=== PATIENT | male | born 1960 | race American Indian/Alaskan Native ===

== ENCOUNTER 2020-04-03 03:15 | Emergency (ER) | payer MEDICAID ==
[2020-04-03 03:58] LABS: Basophils % (Auto) 0.6 % (0.0-1.8); Eosinophils # (Auto) 0.1 K/mm3 (0.0-0.4); Eosinophils % (Auto) 1.2 % (0.0-4.3); Hematocrit 51.7 % (35.5-45.6); Hemoglobin 18.1 gm/dl (11.8-15.2); Lymphocytes # (Auto) 1.3 K/mm3 (1.2-5.4); Lymphocytes % (Auto) 20.5 % (13.4-35.0); Mean Corpuscular HGB Conc 35 % (32-34); Mean Corpuscular Volume 98 fl (84-94); Monocytes # (Auto) 0.6 K/mm3 (0.0-0.8); Monocytes % (Auto) 9.2 % (0.0-7.3); Platelet Count 201 K/mm3 (140-440); Red Blood Count 5.28 M/mm3 (3.65-5.03); Red Cell Distribution Width 12.5 % (13.2-15.2)
[2020-04-03 04:18] LABS: BUN/Creatinine Ratio 7; Blood Urea Nitrogen 9 mg/dL (9-20); Calcium 8.3 mg/dL (8.4-10.2); Hemolysis Index 25
[2020-04-03] MEDS ORDERED: ONDANSETRON 4 MG/2 ML INJ IV ONE (04:34)
--- NOTE | 2020-04-03 04:38 | Emergency Department Report ---
ED N/V/D HPI - General Chief complaint: Fever Stated complaint: FEVER,VOMITING X 3DAYS,CHILLS Source: patient, family Mode of arrival: Ambulatory Limitations: No Limitations - History of Present Illness Initial comments: 59-year-old -Central African male presents to the emergency room for vomiting nausea body aches and headache with dizziness x2 days. Patient states that he is not been able to hold down any food or fluids. Patient complains of chills but denies any fever. Patient admits to smoking cigarettes but does not drink alcohol or smoke weed. Patient has a past medical history of hypertension. Patient cannot remember what blood pressure medication he is supposed to be on. Patient reports he had a COVID negative test 2 months ago. He reports that he works at [employer] complaint: nausea, vomiting Onset/Timin -: days(s) Description of Vomiting: food contents, watery, bilious Associated Abdominal Pain: No Severity: moderate Pain Scale: 0 Context: possible food poisoning Associated Symptoms: diaphoresis, fever/chills (No fever), headaches, nausea/vomiting. denies: chest pain, cough, shortness of breath - Related Data Previous Rx's Medication Instructions Recorded Last Taken Type Metoclopramide [Reglan] 10 mg PO TID PRN #12 tab 04/03/20 Unknown Rx Allergies Allergy/AdvReac Type Severity Reaction Status Date / Time No Known Allergies Allergy Verified 04/03/20 04:52 ED Review of Systems ROS: Stated complaint: FEVER,VOMITING X 3DAYS,CHILLS Other details as noted in HPI ED Past Medical Hx - Past Medical History Previous Medical History?: Yes Hx Hypertension: Yes Additional medical history: Angina - Surgical History Past Surgical History?: Yes Additional Surgical History: Hardware in feet - Social History Smoking Status: Current Every Day Smoker Substance Use Type: Alcohol - Medications Home Medications: Home Medications Medication Instructions Recorded Confirmed Last Taken Type Metoclopramide [Reglan] 10 mg PO TID PRN #12 tab 04/03/20 Unknown Rx ED Physical Exam - General Limitations: No Limitations General appearance: alert, in no apparent distress - Head Head exam: Present: atraumatic, normocephalic - Eye Eye exam: Present: normal appearance - ENT ENT exam: Present: mucous membranes dry - Neck Neck exam: Present: normal inspection - Respiratory Respiratory exam: Present: normal lung sounds bilaterally. Absent: respiratory distress - Cardiovascular Cardiovascular Exam: Present: normal rhythm, tachycardia. Absent: systolic murmur, diastolic murmur, rubs, gallop - GI/Abdominal GI/Abdominal exam: Present: soft, normal bowel sounds - Rectal Rectal exam: Present: deferred - Extremities Exam Extremities exam: Present: normal inspection - Back Exam Back exam: Present: normal inspection - Neurological Exam Neurological exam: Present: alert, oriented X3, normal gait - Psychiatric Psychiatric exam: Present: normal affect, normal mood - Skin Skin exam: Present: warm, dry, intact, normal color. Absent: rash ED Course Vital Signs 04/03/20 03:19 Temperature 98.6 F Pulse Rate 114 H Respiratory 18 Rate Blood Pressure 135/101 O2 Sat by Pulse 95 Oximetry - Reevaluation(s) Reevaluation #1: 04/03/20 06:21 Patient reports he feels better after having fluids headache has resolved after having Reglan and Toradol. ED Medical Decision Making - Lab Data Result diagrams: 04/03/20 03:39 04/03/20 03:39 - Medical Decision Making 59-year-old -[place] male presents to the emergency room for vomiting nausea body aches and headache with dizziness x2 days. Patient states that he is not been able to hold down any food or fluids. Patient complains of chills but denies any fever. Patient admits to smoking cigarettes but does not drink alcohol or smoke weed. Patient has a past medical history of hypertension. Patient cannot remember what blood pressure medication he is supposed to be on. Patient reports he had a COVID negative test 2 months ago. He reports that he works at [employer]. CBC shows he is hemoconcentrated. BMP is stable LFTs are pending. IV normal saline 2 L Zofran 4 mg IV. Critical care attestation.: If time is entered above; I have spent that time in minutes in the direct care of this critically ill patient, excluding procedure time. ED Disposition Clinical Impression: Dehydration, Nausea and vomiting Disposition: DC-01 TO HOME OR SELFCARE Is pt being admited?: No Does the pt Need Aspirin: No Condition: Stable Instructions: Dehydration (ED), Acute Nausea and Vomiting (ED) Additional Instructions: Take Reglan as needed for nausea and vomiting. You can take Tylenol or ibuprofen for headaches. Increase your water intake advance your diet as tolerated. Follow-up with your primary care provider I have listed their information below. Prescriptions: Metoclopramide [Reglan] 10 mg PO TID PRN #12 tab PRN Reason: Nausea And Vomiting Referrals: PRIMARY CAREMD [Primary Care Provider] - 3-5 Days BOBY DUMONT MD [Staff Physician] - 3-5 Days Forms: Work/School Release Form(ED)
[2020-04-03] MEDS ORDERED: KETOROLAC 30 MG/1 ML INJ IM ONE (04:47)
[2020-04-03] MEDS ORDERED: METOCLOPRAMIDE 10 MG/2 ML INJ IV ONE (04:48)
[2020-04-03] MEDS ORDERED: KETOROLAC 30 MG/1 ML INJ ONE (04:50)
[2020-04-03] MEDS ORDERED: METOCLOPRAMIDE 10 MG/2 ML INJ ONE (04:50)
[2020-04-03] MEDS: SODIUM CHLORIDE 0.9% 1000 ML 2,000 ML IV ONE ×2 (04:58→06:24)
[2020-04-03 05:25] LABS: Alanine Aminotransferase 10 units/L (7-56); Albumin 3.8 g/dL (3.9-5)
[2020-04-03 05:49] LABS: Bilirubin,Direct < 0.2 mg/dL (0-0.2)
[2020-04-03] MEDS ORDERED: SODIUM CHLORIDE 0.9% 1000 ML 1,000 ML IV ONE (06:22)
[2020-04-03 07:18] VITALS: BP 146/94
== END 2020-04-03 07:21 | disposition home or self-care (01) ==
LOC: ED 03:15
DX: E86.0 Dehydration (principal); I10 Essential (primary) hypertension; F17.200 Nicotine dependence, unspecified, uncomplicated
CPT/HCPCS: 36415; 80048; 80076; 85025; 96361; 96372; 96374; 99283; J1885; J2405; J2765; J7030; 96375

== ENCOUNTER 2020-06-30 10:38 | Emergency (ER) | payer MEDICAID ==
[2020-06-30 10:44] VITALS: BP 125/95
[2020-06-30] MEDS ORDERED: SODIUM CHLORIDE 0.9% 1000 ML 1,000 ML IV ONE (12:15)
[2020-06-30 13:33] LABS: Basophils % (Auto) 0.6 % (0.0-1.8); Eosinophils # (Auto) 0.1 K/mm3 (0.0-0.4); Eosinophils % (Auto) 1.9 % (0.0-4.3); Hemoglobin 16.8 gm/dl (11.8-15.2); Lymphocytes # (Auto) 1.6 K/mm3 (1.2-5.4); Lymphocytes % (Auto) 30.5 % (13.4-35.0); Mean Corpuscular HGB Conc 34 % (32-34); Mean Corpuscular Volume 100 fl (84-94); Monocytes # (Auto) 0.5 K/mm3 (0.0-0.8); Monocytes % (Auto) 8.9 % (0.0-7.3); Platelet Count 186 K/mm3 (140-440); Red Blood Count 4.99 M/mm3 (3.65-5.03); Red Cell Distribution Width 12.4 % (13.2-15.2)
--- NOTE | 2020-06-30 13:49 | Emergency Department Report ---
ED Dizziness HPI - General Chief Complaint: Dizziness Stated Complaint: HBP/FAINTING/DIZZY Time Seen by Provider: 06/30/20 11:52 Source: patient Mode of arrival: Ambulatory Limitations: No Limitations - History of Present Illness Initial Comments: Patient is a 59-year-old F [place] male with a past medical history of hypertension who is been dizzy for the past 2 weeks. State patient has believe that his dizziness was secondary to being out of his lisinopril. States that when he stands gets up too fast he feels dizziness and lightheaded. He denies chest pain shortness of breath fevers chills cough cold or congestion at this time. - Related Data Previous Rx's Medication Instructions Recorded Last Taken Type Metoclopramide [Reglan] 10 mg PO TID PRN #12 tab 04/03/20 Unknown Rx lisinopriL [Zestril TAB] 20 mg PO QDAY #30 tablet 06/30/20 Unknown Rx Allergies Allergy/AdvReac Type Severity Reaction Status Date / Time No Known Allergies Allergy Verified 04/03/20 04:52 ED Review of Systems ROS: Stated complaint: HBP/FAINTING/DIZZY Other details as noted in HPI Comment: All other systems reviewed and negative ED Past Medical Hx - Past Medical History Hx Hypertension: Yes Additional medical history: Angina - Surgical History Additional Surgical History: Hardware in feet - Social History Smoking Status: Current Every Day Smoker Substance Use Type: Alcohol - Medications Home Medications: Home Medications Medication Instructions Recorded Confirmed Last Taken Type Metoclopramide [Reglan] 10 mg PO TID PRN #12 tab 04/03/20 Unknown Rx lisinopriL [Zestril TAB] 20 mg PO QDAY #30 tablet 06/30/20 Unknown Rx ED Physical Exam - General Limitations: No Limitations General appearance: alert, in no apparent distress - Head Head exam: Present: atraumatic, normocephalic - Eye Eye exam: Present: normal appearance, PERRL, EOMI - ENT ENT exam: Present: normal orophraynx, mucous membranes moist - Neck Neck exam: Present: normal inspection - Respiratory Respiratory exam: Present: normal lung sounds bilaterally. Absent: respiratory distress, wheezes, rales, rhonchi - Cardiovascular Cardiovascular Exam: Present: regular rate, normal rhythm. Absent: systolic murmur, diastolic murmur, rubs, gallop - GI/Abdominal GI/Abdominal exam: Present: soft, normal bowel sounds. Absent: distended, tenderness, guarding, rebound - Rectal Rectal exam: Present: deferred - Extremities Exam Extremities exam: Present: normal inspection - Back Exam Back exam: Present: normal inspection - Neurological Exam Neurological exam: Present: alert, oriented X3, CN II-XII intact - Psychiatric Psychiatric exam: Present: normal affect, normal mood - Skin Skin exam: Present: warm, dry, intact, normal color. Absent: rash ED Course Vital Signs 06/30/20 10:41 Temperature 98.3 F Pulse Rate 87 Respiratory 18 Rate Blood Pressure 125/95 O2 Sat by Pulse 100 Oximetry - Reevaluation(s) Reevaluation #1: 06/30/20 13:48 Orthostatic vital signs were performed which were positive for a significant increase in the patient's heart rate. Her blood pressure remained relatively stable. Patient will have laboratory studies drawn and the patient was given a liter of IV fluids and he will be reassessed. ED Medical Decision Making - Lab Data Result diagrams: 06/30/20 12:32 06/30/20 12:32 Lab Results 06/30/20 Range/Units 12:32 WBC 5.3 (4.5-11.0) K/mm3 RBC 4.99 (3.65-5.03) M/mm3 Hgb 16.8 H (11.8-15.2) gm/dl Hct 50.0 H (35.5-45.6) % MCV 100 H (84-94) fl MCH 34 H (28-32) pg MCHC 34 (32-34) % RDW 12.4 L (13.2-15.2) % Plt Count 186 (140-440) K/mm3 Lymph % (Auto) 30.5 (13.4-35.0) % [place] % (Auto) 8.9 H (0.0-7.3) % Eos % (Auto) 1.9 (0.0-4.3) % Baso % (Auto) 0.6 (0.0-1.8) % Lymph # (Auto) 1.6 (1.2-5.4) K/mm3 [place] # (Auto) 0.5 (0.0-0.8) K/mm3 Eos # (Auto) 0.1 (0.0-0.4) K/mm3 Baso # (Auto) 0.0 (0.0-0.1) K/mm3 Seg Neutrophils % 58.1 (40.0-70.0) % Seg Neutrophils # 3.1 (1.8-7.7) K/mm3 - EKG Data -: EKG Interpreted by Me EKG shows normal: sinus rhythm, axis, intervals, QRS complexes, ST-T waves Rate: normal - EKG Data Interpretation: normal EKG - Medical Decision Making Patient was hydrated with normal saline. His blood work was relatively unremarkable except for some mild hemoconcentration. Patient to be discharged home. He was able to get up and felt improvement in his dizziness after fluids. Critical care attestation.: If time is entered above; I have spent that time in minutes in the direct care of this critically ill patient, excluding procedure time. ED Disposition Clinical Impression: Mild dehydration, Orthostatic lightheadedness Disposition: DC-01 TO HOME OR SELFCARE Is pt being admited?: No Does the pt Need Aspirin: No Condition: Stable Instructions: Dehydration (ED) Prescriptions: lisinopriL [Zestril TAB] 20 mg PO QDAY #30 tablet Referrals: EXETER RAJANSCOTTSDALE MD AARON [Referring] - 3-5 Days PRIMARY CARE, [Primary Care Provider] - 3-5 Days Time of Disposition: 15:09
[2020-06-30 14:49] LABS: BUN/Creatinine Ratio 12; Blood Urea Nitrogen 14 mg/dL (9-20); Calcium 8.9 mg/dL (8.4-10.2); Hemolysis Index 10
== END 2020-06-30 15:50 | disposition home or self-care (01) ==
LOC: ED 10:38
DX: E86.0 Dehydration (principal); R42 Dizziness and giddiness; I10 Essential (primary) hypertension; F17.200 Nicotine dependence, unspecified, uncomplicated; Z79.899 Other long term (current) drug therapy
CPT/HCPCS: 36415; 80048; 85025; 93005; 96360; 99283; J7030

== ENCOUNTER 2020-07-04 19:42 | Emergency (ER) | payer MEDICAID | END 2020-07-04 20:05 | disposition left against medical advice (07) | LOC: ED 19:42 | DX: R53.1 Weakness (principal); Z53.21 Procedure and treatment not carried out due to patient leaving prior to being seen by health care provider ==

== ENCOUNTER 2020-07-05 10:18 | Emergency (ER) | payer MEDICAID ==
[2020-07-05 12:48] LABS: Basophils % (Auto) 0.8 % (0.0-1.8); Eosinophils # (Auto) 0.1 K/mm3 (0.0-0.4); Eosinophils % (Auto) 1.2 % (0.0-4.3); Hematocrit 46.2 % (35.5-45.6); Lymphocytes # (Auto) 1.3 K/mm3 (1.2-5.4); Lymphocytes % (Auto) 22.7 % (13.4-35.0); Mean Corpuscular HGB Conc 35 % (32-34); Mean Corpuscular Volume 99 fl (84-94); Monocytes # (Auto) 0.5 K/mm3 (0.0-0.8); Monocytes % (Auto) 9.6 % (0.0-7.3); Platelet Count 181 K/mm3 (140-440); Red Blood Count 4.65 M/mm3 (3.65-5.03); Red Cell Distribution Width 12.8 % (13.2-15.2)
--- NOTE | 2020-07-05 12:48 | XRay Report ---
CHEST 1 VIEW 07/05/2020 12:03 PM INDICATION / CLINICAL INFORMATION: smoker, unexplained weight lose. COMPARISON: None available. FINDINGS: SUPPORT DEVICES: None. HEART / MEDIASTINUM: No significant abnormality. LUNGS / PLEURA: No significant pulmonary or pleural abnormality. No pneumothorax. ADDITIONAL FINDINGS: No significant additional findings. IMPRESSION: 1. No acute abnormality of the chest. Signer Name: George Campbell MD Signed: 07/05/2020 12:43 PM Workstation Name: [id number]
[2020-07-05 12:52] LABS: Bilirubin,Urine NEG (Negative); Blood,Urine NEG (Negative); Color,Urine Colorless (Yellow); Protein,Urine <15 mg/dL mg/dL (Negative); Urobilinogen,Urine < 2.0 mg/dL (<2.0)
[2020-07-05 13:01] VITALS: BP 153/95
[2020-07-05 13:03] LABS: Alanine Aminotransferase 11 units/L (7-56); Albumin 3.8 g/dL (3.9-5); BUN/Creatinine Ratio 10; Blood Urea Nitrogen 11 mg/dL (9-20); Calcium 8.6 mg/dL (8.4-10.2); Hemolysis Index 16
[2020-07-05 13:05] LABS: RBC,Urine < 1.0 /HPF (0.0-6.0); WBC,Urine < 1.0 /HPF (0.0-6.0)
--- NOTE | 2020-07-05 13:43 | Emergency Department Report ---
ED General Adult HPI - General Chief complaint: Weakness Stated complaint: WEAKNESS Time Seen by Provider: 07/05/20 11:39 Source: patient Mode of arrival: Ambulatory Limitations: No Limitations - History of Present Illness Initial comments: Patient presents to the emergency department with a chief complaint of fatigue and decreased appetite for the last couple of weeks. Patient states he was seen in emergency department within the last week and was given IV fluids for dehydration. Patient also complains of unexplained weight loss over the last 3 months. Patient has a history of smoking and has never had a baseline colonoscopy done. Patient denies chest pain, shortness breath, headache, abdominal pain. -: Gradual Severity scale (0 -10): 0 Consistency: constant Improves with: none Worsens with: none Associated Symptoms: denies other symptoms Treatments Prior to Arrival: none - Related Data Previous Rx's Medication Instructions Recorded Last Taken Type Metoclopramide [Reglan] 10 mg PO TID PRN #12 tab 04/03/20 Unknown Rx lisinopriL [Zestril TAB] 20 mg PO QDAY #30 tablet 06/30/20 Unknown Rx Allergies Allergy/AdvReac Type Severity Reaction Status Date / Time No Known Allergies Allergy Verified 04/03/20 04:52 ED Review of Systems ROS: Stated complaint: WEAKNESS Other details as noted in HPI Comment: All other systems reviewed and negative Constitutional: other (fatigue). denies: chills, fever Eyes: denies: eye pain, eye discharge, vision change ENT: denies: ear pain, throat pain Respiratory: denies: cough, shortness of breath, wheezing Cardiovascular: denies: chest pain, palpitations Endocrine: no symptoms reported Gastrointestinal: denies: abdominal pain, nausea, diarrhea Genitourinary: denies: urgency, dysuria Musculoskeletal: denies: back pain, joint swelling, arthralgia Skin: denies: rash, lesions Neurological: denies: headache, weakness, paresthesias Psychiatric: denies: anxiety, depression Hematological/Lymphatic: denies: easy bleeding, easy bruising ED Past Medical Hx - Past Medical History Hx Hypertension: Yes Additional medical history: Angina - Surgical History Additional Surgical History: Hardware in feet - Social History Smoking Status: Current Every Day Smoker - Medications Home Medications: Home Medications Medication Instructions Recorded Confirmed Last Taken Type Metoclopramide [Reglan] 10 mg PO TID PRN #12 tab 04/03/20 Unknown Rx lisinopriL [Zestril TAB] 20 mg PO QDAY #30 tablet 06/30/20 Unknown Rx ED Physical Exam - General Limitations: No Limitations General appearance: alert, in no apparent distress - Head Head exam: Present: atraumatic, normocephalic - Eye Eye exam: Present: normal appearance, PERRL, EOMI - ENT ENT exam: Present: mucous membranes moist - Neck Neck exam: Present: normal inspection - Respiratory Respiratory exam: Present: normal lung sounds bilaterally. Absent: respiratory distress - Cardiovascular Cardiovascular Exam: Present: regular rate, normal rhythm. Absent: systolic murmur, diastolic murmur, rubs, gallop - GI/Abdominal GI/Abdominal exam: Present: soft, normal bowel sounds. Absent: distended, tenderness - Rectal Rectal exam: Present: deferred - Extremities Exam Extremities exam: Present: normal inspection - Back Exam Back exam: Present: normal inspection - Neurological Exam Neurological exam: Present: alert, oriented X3, CN II-XII intact. Absent: motor sensory deficit - Psychiatric Psychiatric exam: Present: normal affect, normal mood - Skin Skin exam: Present: warm, dry, intact, normal color. Absent: rash ED Course Vital Signs 07/05/20 07/05/20 07/05/20 10:23 11:05 11:15 Temperature 97.7 F Pulse Rate 90 68 68 Respiratory 18 21 18 Rate Blood Pressure 130/98 145/103 O2 Sat by Pulse 99 100 Oximetry 07/05/20 07/05/20 07/05/20 11:30 12:00 12:31 Temperature Pulse Rate 75 66 65 Respiratory 19 20 20 Rate Blood Pressure 140/107 153/95 153/95 O2 Sat by Pulse 99 100 100 Oximetry ED Medical Decision Making - Lab Data Result diagrams: 07/05/20 12:16 07/05/20 12:16 Lab Results 07/05/20 07/05/20 07/05/20 Range/Units 12:16 12:16 Unknown WBC 5.6 (4.5-11.0) K/mm3 RBC 4.65 (3.65-5.03) M/mm3 Hgb 16.0 H (11.8-15.2) gm/dl Hct 46.2 H (35.5-45.6) % MCV 99 H (84-94) fl MCH 34 H (28-32) pg MCHC 35 H (32-34) % RDW 12.8 L (13.2-15.2) % Plt Count 181 (140-440) K/mm3 Lymph % (Auto) 22.7 (13.4-35.0) % [place] % (Auto) 9.6 H (0.0-7.3) % Eos % (Auto) 1.2 (0.0-4.3) % Baso % (Auto) 0.8 (0.0-1.8) % Lymph # (Auto) 1.3 (1.2-5.4) K/mm3 [place] # (Auto) 0.5 (0.0-0.8) K/mm3 Eos # (Auto) 0.1 (0.0-0.4) K/mm3 Baso # (Auto) 0.0 (0.0-0.1) K/mm3 Seg Neutrophils % 65.7 (40.0-70.0) % Seg Neutrophils # 3.7 (1.8-7.7) K/mm3 Sodium 138 (137-145) mmol/L Potassium 4.3 (3.6-5.0) mmol/L Chloride 101.2 (98-107) mmol/L Carbon Dioxide 27 (22-30) mmol/L Anion Gap 14 mmol/L BUN 11 (9-20) mg/dL Creatinine 1.1 (0.8-1.3) mg/dL Estimated GFR > 60 ml/min BUN/Creatinine Ratio 10 % Glucose 121 H (75-100) mg/dL Calcium 8.6 (8.4-10.2) mg/dL Total Bilirubin 0.40 (0.1-1.2) mg/dL AST 20 (5-40) units/L ALT 11 (7-56) units/L Alkaline Phosphatase 77 (35-129) units/L Total Protein 5.6 L (6.3-8.2) g/dL Albumin 3.8 L (3.9-5) g/dL Albumin/Globulin Ratio 2.1 % Urine Color Colorless (Yellow) Urine Turbidity Clear (Clear) Urine pH 7.0 (5.0-7.0) Ur Specific [place] 1.002 L (1.003-1.030) Urine Protein <15 mg/dl (Negative) mg/dL Urine Glucose (UA) Neg (Negative) mg/dL Urine Ketones Neg (Negative) mg/dL Urine Blood Neg (Negative) Urine Nitrite Neg (Negative) Urine Bilirubin Neg (Negative) Urine Urobilinogen < 2.0 (<2.0) mg/dL Ur Leukocyte Esterase Neg (Negative) Urine WBC (Auto) < 1.0 (0.0-6.0) /HPF Urine RBC (Auto) < 1.0 (0.0-6.0) /HPF - Radiology Data Radiology results: report reviewed - Medical Decision Making Discussed results with patient Critical care attestation.: If time is entered above; I have spent that time in minutes in the direct care of this critically ill patient, excluding procedure time. ED Disposition Clinical Impression: Fatigue Disposition: DC-01 TO HOME OR SELFCARE Is pt being admited?: No Does the pt Need Aspirin: No Condition: Stable Instructions: Fatigue (ED) Additional Instructions: return if worse Referrals: KULDIP SANON MD [Primary Care Provider] - 3-5 Days BOBY DUMONT MD [Staff Physician] - 3-5 Days GARTH LATIF MD [Staff Physician] - 3-5 Days [facility] [Provider Group] - 3-5 Days Time of Disposition: 13:41
== END 2020-07-05 14:49 | disposition home or self-care (01) ==
LOC: ED 10:18
DX: R53.83 Other fatigue (principal); R53.1 Weakness; I10 Essential (primary) hypertension; F17.200 Nicotine dependence, unspecified, uncomplicated; Z79.899 Other long term (current) drug therapy
CPT/HCPCS: 36415; 71045; 80053; 81001; 85025; 93005

== ENCOUNTER 2020-11-22 15:19 | Emergency (ER) | payer MEDICAID ==
[2020-11-22 16:12] VITALS: BP 130/88
--- NOTE | 2020-11-22 17:56 | Emergency Department Report ---
ED ENT HPI - General Chief complaint: Dental/Oral Stated complaint: FACIAL SWELLING Time Seen by Provider: 11/22/20 16:26 Source: patient Mode of arrival: Ambulatory Limitations: No Limitations - History of Present Illness Initial comments: This is a 60-year-old male nontoxic, well nourished in appearance, no acute signs of distress presents to the ED with c/o of left upper toothache several days. Patient stated has several tooth extracted and was placed on amoxicillin which he is currently taking but stated pain is worsening and has some gingival swelling. Patient describes toothache as aching level of 8 out of 10. Patient denies any facial swelling. Patient denies any numbness, tingling, fever, chills, headache, stiff neck, abdominal pain, chest pain, shortness of breath. Patient denies any drug allergies or significant past medical history. MD complaint: tooth pain -: days(s) Location: tooth # 1 - Pain here Severity: mild Severity scale (0 -10): 8 Quality: aching Consistency: constant Improves with: none Worsens with: none Context- Dental: history of dental caries, poor dental care Associated Symptoms: gum swelling, toothache. denies: fever, cough, pain with swallowing, sore throat, tinnitus, hearing loss, discharge from ear, rhinorrhea - Related Data Previous Rx's Medication Instructions Recorded Last Taken Type Metoclopramide [Reglan] 10 mg PO TID PRN #12 tab 04/03/20 Unknown Rx lisinopriL [Zestril TAB] 20 mg PO QDAY #30 tablet 06/30/20 Unknown Rx Chlorhexidine Mouthwash [Peridex] 15 ml MM BID #1 bottle 11/22/20 Unknown Rx Clindamycin [Clindamycin CAP] 300 mg PO Q8H #21 cap 11/22/20 Unknown Rx Allergies Allergy/AdvReac Type Severity Reaction Status Date / Time No Known Allergies Allergy Verified 04/03/20 04:52 ED Dental HPI - General Chief complaint: Dental/Oral Stated complaint: FACIAL SWELLING Time Seen by Provider: 11/22/20 16:26 Source: patient Mode of arrival: Ambulatory Limitations: No Limitations - Related Data Previous Rx's Medication Instructions Recorded Last Taken Type Metoclopramide [Reglan] 10 mg PO TID PRN #12 tab 04/03/20 Unknown Rx lisinopriL [Zestril TAB] 20 mg PO QDAY #30 tablet 06/30/20 Unknown Rx Chlorhexidine Mouthwash [Peridex] 15 ml MM BID #1 bottle 11/22/20 Unknown Rx Clindamycin [Clindamycin CAP] 300 mg PO Q8H #21 cap 11/22/20 Unknown Rx Allergies Allergy/AdvReac Type Severity Reaction Status Date / Time No Known Allergies Allergy Verified 04/03/20 04:52 ED Review of Systems ROS: Stated complaint: FACIAL SWELLING Other details as noted in HPI Comment: All other systems reviewed and negative Constitutional: denies: chills, fever Eyes: denies: eye pain, eye discharge, vision change ENT: dental pain. denies: ear pain, throat pain Respiratory: denies: cough, shortness of breath, wheezing Cardiovascular: denies: chest pain, palpitations Endocrine: no symptoms reported Gastrointestinal: denies: abdominal pain, nausea, diarrhea Genitourinary: denies: urgency, dysuria Musculoskeletal: denies: back pain, joint swelling, arthralgia Skin: denies: rash, lesions Neurological: denies: headache, weakness, paresthesias Psychiatric: denies: anxiety, depression Hematological/Lymphatic: denies: easy bleeding, easy bruising ED Past Medical Hx - Past Medical History Previous Medical History?: Yes Hx Hypertension: Yes Additional medical history: Angina - Surgical History Past Surgical History?: Yes Additional Surgical History: Hardware in feet - Social History Smoking Status: Current Every Day Smoker Substance Use Type: None - Medications Home Medications: Home Medications Medication Instructions Recorded Confirmed Last Taken Type Metoclopramide [Reglan] 10 mg PO TID PRN #12 tab 04/03/20 Unknown Rx lisinopriL [Zestril TAB] 20 mg PO QDAY #30 tablet 06/30/20 Unknown Rx Chlorhexidine Mouthwash [Peridex] 15 ml MM BID #1 bottle 11/22/20 Unknown Rx Clindamycin [Clindamycin CAP] 300 mg PO Q8H #21 cap 11/22/20 Unknown Rx ED Physical Exam - General Limitations: No Limitations General appearance: alert, in no apparent distress - Head Head exam: Present: atraumatic, normocephalic - Eye Eye exam: Present: normal appearance - Expanded ENT Exam Expanded Ear exam: Present: normal external inspection Mouth exam: Present: normal external inspection, tongue normal. Absent: drooling, trismus, muffled voice Teeth exam: Present: dental tenderness #, gingival enlargement, other (No facial swelling or abscess). Absent: dental caries, fractured tooth # Throat exam: Positive: normal inspection, other (Uvula midline.). Negative: tonsillar erythema, tonsillomegaly, tonsillar exudate, R peritonsillar mass, L peritonsillar mass - Neck Neck exam: Present: normal inspection, full ROM. Absent: tenderness, meningismus, lymphadenopathy - Respiratory Respiratory exam: Absent: respiratory distress - Cardiovascular Cardiovascular Exam: Present: regular rate - Extremities Exam Extremities exam: Present: full ROM - Back Exam Back exam: Present: full ROM - Neurological Exam Neurological exam: Present: alert, oriented X3, normal gait - Psychiatric Psychiatric exam: Present: normal affect, normal mood - Skin Skin exam: Present: warm, dry, intact, normal color. Absent: rash ED Course Vital Signs 11/22/20 16:10 Temperature 98.7 F Pulse Rate 70 Respiratory 18 Rate Blood Pressure 130/88 O2 Sat by Pulse 98 Oximetry - Reevaluation(s) Reevaluation #1: 11/22/20 17:57 Patient is speaking in full sentences with no signs of distress noted. ED Medical Decision Making - Medical Decision Making I will discharge patient with clindamycin. I instructed patient not to take amoxicillin due to the antibiotic change. Exam otherwise does not show any abscess but does show gingival enlargement. Patient also will be discharged with Peridex. Patient was instructed to follow-up with a dentist doctor in 3-5 days or if symptoms worsen and continue return to emergency room as soon as possible. At time of discharge, the patient does not seem toxic or ill in appearance. No acute signs of distress noted. Patient agrees to discharge treatment plan of care. No further questions noted by the patient. Critical care attestation.: If time is entered above; I have spent that time in minutes in the direct care of this critically ill patient, excluding procedure time. ED Disposition Clinical Impression: Gingivitis, Toothache Disposition: TO HOME OR SELFCARE Is pt being admited?: No Does the pt Need Aspirin: No Condition: Stable Additional Instructions: Follow-up with a dentist doctor in 3-5 days or if symptoms worsen and continue return to emergency room as soon as possible. Prescriptions: Clindamycin [Clindamycin CAP] 300 mg PO Q8H #21 cap Chlorhexidine Mouthwash [Peridex] 15 ml MM BID #1 bottle Referrals: PRIMARY CARE, [Referring] - 3-5 Days [facility] [Outside] - 3-5 Days [facility] [Outside] - 3-5 Days Time of Disposition: 17:58
== END 2020-11-22 17:58 | disposition home or self-care (01) ==
LOC: ED 15:19
DX: K05.10 Chronic gingivitis, plaque induced (principal); K08.89 Other specified disorders of teeth and supporting structures; I10 Essential (primary) hypertension; F17.200 Nicotine dependence, unspecified, uncomplicated; Z79.899 Other long term (current) drug therapy
CPT/HCPCS: 99282

== ENCOUNTER 2020-12-13 01:00 | Emergency (ER) | payer MEDICAID ==
[2020-12-13 01:11] VITALS: BP 137/89
--- NOTE | 2020-12-13 01:21 | Emergency Department Report ---
ED Back Pain/Injury HPI - General Chief Complaint: Back Pain/Injury Stated Complaint: BACK PAIN, HEADACHE Source: patient Limitations: No Limitations - History of Present Illness MD Complaint: back pain (lower back pain from heavy lifting at work), other (headache) -: Sudden, week(s) (1) Similar Symptoms Previously: No Place: work Radiation: none Severity: severe Severity scale (0 -10): 8 Quality: sharp, aching Consistency: constant Improves With: none Worsens With: movement, walking Context: while lifting, turning/twisting Associated Symptoms: denies other symptoms, headaches. denies: confusion, numbness, difficulty walking, difficulty urinating, diaphoresis, incontinence, constipation, abdominal pain, loss of appetite, nausea/vomiting, rash, seizure, shortness of breath, other Treatments Prior to Arrival: acetaminophen - Related Data Previous Rx's Medication Instructions Recorded Last Taken Type Metoclopramide [Reglan] 10 mg PO TID PRN #12 tab 04/03/20 Unknown Rx lisinopriL [Zestril TAB] 20 mg PO QDAY #30 tablet 06/30/20 Unknown Rx Chlorhexidine Mouthwash [Peridex] 15 ml MM BID #1 bottle 11/22/20 Unknown Rx Clindamycin [Clindamycin CAP] 300 mg PO Q8H #21 cap 11/22/20 Unknown Rx Ibuprofen [Motrin] 600 mg PO Q8H PRN #30 tablet 12/13/20 Unknown Rx methOCARBAMOL [Robaxin TAB] 750 mg PO BID PRN #30 tab 12/13/20 Unknown Rx predniSONE [Deltasone] 40 mg PO QDAY #10 tab 12/13/20 Unknown Rx Allergies Allergy/AdvReac Type Severity Reaction Status Date / Time No Known Allergies Allergy Verified 04/03/20 04:52 ED Review of Systems ROS: Stated complaint: BACK PAIN, HEADACHE Other details as noted in HPI ED Past Medical Hx - Past Medical History Previous Medical History?: Yes Hx Hypertension: Yes Additional medical history: Angina - Surgical History Past Surgical History?: Yes Additional Surgical History: Hardware in feet - Social History Smoking Status: Current Every Day Smoker Substance Use Type: None - Medications Home Medications: Home Medications Medication Instructions Recorded Confirmed Last Taken Type Metoclopramide [Reglan] 10 mg PO TID PRN #12 tab 04/03/20 Unknown Rx lisinopriL [Zestril TAB] 20 mg PO QDAY #30 tablet 06/30/20 Unknown Rx Chlorhexidine Mouthwash [Peridex] 15 ml MM BID #1 bottle 11/22/20 Unknown Rx Clindamycin [Clindamycin CAP] 300 mg PO Q8H #21 cap 11/22/20 Unknown Rx Ibuprofen [Motrin] 600 mg PO Q8H PRN #30 tablet 12/13/20 Unknown Rx methOCARBAMOL [Robaxin TAB] 750 mg PO BID PRN #30 tab 12/13/20 Unknown Rx predniSONE [Deltasone] 40 mg PO QDAY #10 tab 12/13/20 Unknown Rx ED Physical Exam - General Limitations: No Limitations ED Course Vital Signs 12/13/20 12/13/20 01:10 01:11 Temperature 97.7 F Pulse Rate 65 Respiratory 16 Rate Blood Pressure 137/89 O2 Sat by Pulse 96 Oximetry Critical care attestation.: If time is entered above; I have spent that time in minutes in the direct care of this critically ill patient, excluding procedure time. ED Disposition Clinical Impression: Spasm of muscle of lower back Acute low back pain without sciatica Qualifiers: Back pain laterality: unspecified Qualified Code(s): M54.5 - Low back pain Disposition: - TO HOME OR SELFCARE Is pt being admited?: No Does the pt Need Aspirin: No Condition: Stable Instructions: Muscle Cramps and Spasms, [id number], Acute Back Pain, Adult Additional Instructions: Your symptoms are likely due to muscle spasm and muscle strain of your low back from heavy lifting. Therefore take medication as needed for pain and muscle relaxants, drink plenty of fluids and follow-up with your primary care physician in 5 to 7 days for reevaluation. Return to the ED immediately if symptoms get worse. Prescriptions: predniSONE [Deltasone] 40 mg PO QDAY #10 tab Ibuprofen [Motrin] 600 mg PO Q8H PRN #30 tablet PRN Reason: Pain methOCARBAMOL [Robaxin TAB] 750 mg PO BID PRN #30 tab PRN Reason: Muscle Spasm Referrals: [facility] [Provider Group] - 3-5 Days Forms: Work/School Release Form(ED) Time of Disposition: 01:19 Print Language: CZECH
== END 2020-12-13 02:11 | disposition home or self-care (01) ==
LOC: ED 01:00
DX: M54.5 Low back pain (principal); M62.830 Muscle spasm of back; I10 Essential (primary) hypertension; F17.200 Nicotine dependence, unspecified, uncomplicated; Z98.890 Other specified postprocedural states; Z79.1 Long term (current) use of non-steroidal anti-inflammatories (NSAID); Z79.2 Long term (current) use of antibiotics; Z79.899 Other long term (current) drug therapy
CPT/HCPCS: 99281

== ENCOUNTER 2020-12-27 23:20 | Emergency (ER) | payer MEDICAID ==
[2020-12-28 00:24] VITALS: BP 148/100
[2020-12-28] MEDS ORDERED: predniSONE 20 MG TAB PO ONE (02:39)
[2020-12-28] MEDS ORDERED: ACETAMINOPHEN 500 MG TAB PO ONE (02:39)
[2020-12-28] MEDS ORDERED: diphenhydrAMINE 25 MG CAP PO ONE (02:39)
--- NOTE | 2020-12-28 02:44 | Emergency Department Report ---
ED General Adult HPI - General Chief complaint: Upper Respiratory Infection Stated complaint: SINUS,HEADACHE,COLD,COUGH Time Seen by Provider: 12/28/20 02:38 Source: patient Mode of arrival: Ambulatory Limitations: No Limitations - History of Present Illness Initial comments: Patient is a 60-year-old male with a history of hypertension and recurrent sinu sitis. Patient presents tonight for sinus pain and pressure frontal and maxillary patient rates symptoms at 4/10 with her congestion and pressure. States nocturnal fever no fever noted in triage today. Patient does state rhinorrhea yellow-green in color, and postnasal drip. There is no wheezing, stridor, or shortness of breath. There is been no chest pain or nausea vomiting. There is been no dizziness, lightheadedness, patient does endorse usual sinus headache with pressure. Symptoms relieved temporarily with Tylenol however symptoms return with activity and movement. Patient does have a primary care doctor. There are no other exacerbating or relieving factors. - Related Data Previous Rx's Medication Instructions Recorded Last Taken Type Metoclopramide [Reglan] 10 mg PO TID PRN #12 tab 04/03/20 Unknown Rx lisinopriL [Zestril TAB] 20 mg PO QDAY #30 tablet 06/30/20 Unknown Rx Chlorhexidine Mouthwash [Peridex] 15 ml MM BID #1 bottle 11/22/20 Unknown Rx Clindamycin [Clindamycin CAP] 300 mg PO Q8H #21 cap 11/22/20 Unknown Rx Ibuprofen [Motrin] 600 mg PO Q8H PRN #30 tablet 12/13/20 Unknown Rx methOCARBAMOL [Robaxin TAB] 750 mg PO BID PRN #30 tab 12/13/20 Unknown Rx predniSONE [Deltasone] 40 mg PO QDAY #10 tab 12/13/20 Unknown Rx Acetaminophen [Acetaminophen TAB] 1,000 mg PO Q6HR PRN #30 tablet 12/28/20 Unknown Rx Amoxicillin/Potassium Clav 1 each PO BID 7 Days #14 tablet 12/28/20 Unknown Rx [Augmentin 875-125 Tablet] diphenhydrAMINE [Benadryl CAP] 25 mg PO Q6HR PRN #15 capsule 12/28/20 Unknown Rx predniSONE [Deltasone] 40 mg PO DAILY 5 Days #10 tablet 12/28/20 Unknown Rx Allergies Allergy/AdvReac Type Severity Reaction Status Date / Time No Known Allergies Allergy Verified 04/03/20 04:52 ED Review of Systems ROS: Stated complaint: SINUS,HEADACHE,COLD,COUGH Other details as noted in HPI Constitutional: chills, malaise Eyes: denies: eye pain, eye discharge, vision change ENT: ear pain, congestion, other (sinus pain and pressure ) Respiratory: no symptoms reported, cough (with post nasal drip ). denies: shortness of breath, wheezing Cardiovascular: denies: chest pain, palpitations Endocrine: no symptoms reported Gastrointestinal: denies: abdominal pain, nausea, vomiting, diarrhea Genitourinary: denies: urgency, dysuria Musculoskeletal: denies: back pain, joint swelling, arthralgia Skin: denies: rash, lesions Neurological: headache (frontal sinus pressure ). denies: weakness, numbness, paresthesias, confusion, vertigo Psychiatric: denies: anxiety, depression Hematological/Lymphatic: denies: easy bleeding, easy bruising ED Past Medical Hx - Past Medical History Previous Medical History?: Yes Hx Hypertension: Yes Additional medical history: Angina. 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 - Surgical History Past Surgical History?: Yes Hx Coronary Stent: Yes (stent) Additional Surgical History: Hardware in feet - Social History Smoking Status: Current Every Day Smoker Substance Use Type: None - Medications Home Medications: Home Medications Medication Instructions Recorded Confirmed Last Taken Type Metoclopramide [Reglan] 10 mg PO TID PRN #12 tab 04/03/20 Unknown Rx lisinopriL [Zestril TAB] 20 mg PO QDAY #30 tablet 06/30/20 Unknown Rx Chlorhexidine Mouthwash [Peridex] 15 ml MM BID #1 bottle 11/22/20 Unknown Rx Clindamycin [Clindamycin CAP] 300 mg PO Q8H #21 cap 11/22/20 Unknown Rx Ibuprofen [Motrin] 600 mg PO Q8H PRN #30 tablet 12/13/20 Unknown Rx methOCARBAMOL [Robaxin TAB] 750 mg PO BID PRN #30 tab 12/13/20 Unknown Rx predniSONE [Deltasone] 40 mg PO QDAY #10 tab 12/13/20 Unknown Rx Acetaminophen [Acetaminophen TAB] 1,000 mg PO Q6HR PRN #30 tablet 12/28/20 Unknown Rx Amoxicillin/Potassium Clav 1 each PO BID 7 Days #14 tablet 12/28/20 Unknown Rx [Augmentin 875-125 Tablet] diphenhydrAMINE [Benadryl CAP] 25 mg PO Q6HR PRN #15 capsule 12/28/20 Unknown Rx predniSONE [Deltasone] 40 mg PO DAILY 5 Days #10 tablet 12/28/20 Unknown Rx ED Physical Exam - General Limitations: No Limitations General appearance: alert, in no apparent distress - Head Head exam: Present: normocephalic - Eye Eye exam: Present: PERRL, EOMI Pupils: Present: normal accommodation - ENT ENT exam: Present: mucous membranes moist, TM's normal bilaterally, normal external ear exam, other (bilat frontal and maxillary sinus pain and pressure to palpation, turbinates boggy with yellow rhinorrhea and post nasal drip ) - Expanded ENT Exam Expanded Throat exam: Positive: tonsillar erythema, other (uvula midline no exudate no stridor, airway is patent ). Negative: tonsillomegaly, tonsillar exudate, R peritonsillar mass, L peritonsillar mass - Neck Neck exam: Present: normal inspection, full ROM. Absent: tenderness, meningismus, lymphadenopathy, thyromegaly - Respiratory Respiratory exam: Present: normal lung sounds bilaterally. Absent: respiratory distress, wheezes, stridor, chest wall tenderness - Cardiovascular Cardiovascular Exam: Present: regular rate, normal rhythm, normal heart sounds. Absent: systolic murmur, diastolic murmur, rubs, gallop - GI/Abdominal GI/Abdominal exam: Present: soft, normal bowel sounds. Absent: distended, tenderness - Rectal Rectal exam: Present: deferred - Extremities Exam Extremities exam: Present: normal inspection. Absent: full ROM, tenderness - Back Exam Back exam: Present: normal inspection, full ROM. Absent: tenderness - Neurological Exam Neurological exam: Present: alert, oriented X3, CN II-XII intact, normal gait - Expanded Neurological Exam Expanded Patient oriented to: Present: person, place, time Best Eye Response ([place]): (4) open spontaneously Best Motor Response ([place]): (6) obeys commands Best Verbal Response ([place]): (5) oriented [place] Total: 15 - Psychiatric Psychiatric exam: Present: normal affect, normal mood - Skin Skin exam: Present: warm, dry, intact, normal color. Absent: rash ED Course Vital Signs 04/14/21 00:19 Temperature 98.5 F Pulse Rate 73 Respiratory 16 Rate Blood Pressure 148/100 O2 Sat by Pulse 100 Oximetry ED Medical Decision Making - Medical Decision Making This is straightforward sinusitis with sinus headache. We will treat for same. Patient DC'd home with prescriptions. Patient will follow up primary care doctor in 2 to 3 days. Patient will return to ED should symptoms worsen. Patient DC'd home in stable condition at this time. Critical care attestation.: If time is entered above; I have spent that time in minutes in the direct care of this critically ill patient, excluding procedure time. ED Disposition Clinical Impression: Sinus headache Sinusitis Qualifiers: Sinusitis location: maxillary Chronicity: acute Recurrence: recurrent Qualified Code(s): J01.01 - Acute recurrent maxillary sinusitis Disposition: DC-01 TO HOME OR SELFCARE Is pt being admited?: No Does the pt Need Aspirin: No Condition: Stable Instructions: Sinusitis, Adult, [id number], Sinus Headache, [id number] Additional Instructions: follow up with your primary care doctor in 2-3 days, take medications as prescribed, return to ed if symptoms worsen. Prescriptions: Acetaminophen [Acetaminophen TAB] 1,000 mg PO Q6HR PRN #30 tablet PRN Reason: headache, pain Amoxicillin/Potassium Clav [Augmentin 875-125 Tablet] 1 each PO BID 7 Days #14 tablet diphenhydrAMINE [Benadryl CAP] 25 mg PO Q6HR PRN #15 capsule PRN Reason: congestion headache predniSONE [Deltasone] 40 mg PO DAILY 5 Days #10 tablet Referrals: SHANTA MURRAY MD [Primary Care Provider] - 3-5 Days Forms: Work/School Release Form(ED) Time of Disposition: 02:49
== END 2020-12-28 03:03 | disposition home or self-care (01) ==
LOC: ED 23:20
DX: J32.9 Chronic sinusitis, unspecified (principal); I10 Essential (primary) hypertension; F17.200 Nicotine dependence, unspecified, uncomplicated; Z98.890 Other specified postprocedural states; Z79.899 Other long term (current) drug therapy
CPT/HCPCS: 99282; J7512

== ENCOUNTER 2021-05-05 10:02 | Emergency (ER) | payer MEDICAID ==
[2021-05-05 10:33] VITALS: BP 136/90
--- NOTE | 2021-05-05 11:33 | XRay Report ---
CHEST 2 VIEWS INDICATION / CLINICAL INFORMATION: shortness of breath. COMPARISON: One view of the chest dated 07/05/2020 FINDINGS: SUPPORT DEVICES: None. HEART / MEDIASTINUM: No significant abnormality. LUNGS / PLEURA: No significant pulmonary abnormality. No significant pleural effusion. No pneumothora x. ADDITIONAL FINDINGS: No significant additional findings. IMPRESSION: 1. No acute abnormality of the chest. Signer Name: George Campbell MD Signed: 05/05/2021 11:29 AM Workstation Name: [id number]
[2021-05-05 12:24] LABS: Basophils % (Auto) 0.7 % (0.0-1.8); Eosinophils # (Auto) 0.1 K/mm3 (0.0-0.4); Eosinophils % (Auto) 1.8 % (0.0-4.3); Hematocrit 45.7 % (35.5-45.6); Lymphocytes # (Auto) 1.8 K/mm3 (1.2-5.4); Lymphocytes % (Auto) 30.8 % (13.4-35.0); Mean Corpuscular HGB Conc 35 % (32-34); Mean Corpuscular Volume 99 fl (84-94); Monocytes # (Auto) 0.5 K/mm3 (0.0-0.8); Monocytes % (Auto) 8.3 % (0.0-7.3); Platelet Count 167 K/mm3 (140-440); Red Blood Count 4.62 M/mm3 (3.65-5.03); Red Cell Distribution Width 12.6 % (13.2-15.2)
[2021-05-05 13:09] LABS: Alanine Aminotransferase 9 units/L (7-56); Albumin 4.2 g/dL (3.9-5); BUN/Creatinine Ratio 10; Blood Urea Nitrogen 12 mg/dL (9-20); Calcium 9.1 mg/dL (8.4-10.2); Hemolysis Index 7
--- NOTE | 2021-05-05 13:59 | Emergency Department Report ---
ED General Adult HPI - General Chief complaint: Dyspnea/Respdistress Stated complaint: BREATHING, FOOT PAIN,COLD Time Seen by Provider: 05/05/21 12:29 Source: patient Mode of arrival: Ambulatory Limitations: No Limitations - History of Present Illness Initial comments: This 60-year-old male with past medical history of hypertension and coronary artery disease who presents the emergency department chief complaint of cough, wheezing, generalized myalgias, nasal congestion and fever. He reports his boss tested positive for COVID-19 and told him this morning that he need to be checked out. He denies any hemoptysis, lower extremity edema, chest pain, weakness or any other associated symptoms. He does report he has had a productive cough. His symptoms have been ongoing for about 10 days. He denies any recent antibiotics or immobilization. - Related Data Previous Rx's Medication Instructions Recorded Last Taken Type Metoclopramide [Reglan] 10 mg PO TID PRN #12 tab 04/03/20 Unknown Rx lisinopriL [Zestril TAB] 20 mg PO QDAY #30 tablet 06/30/20 Unknown Rx Chlorhexidine Mouthwash [Peridex] 15 ml MM BID #1 bottle 11/22/20 Unknown Rx Clindamycin [Clindamycin CAP] 300 mg PO Q8H #21 cap 11/22/20 Unknown Rx Ibuprofen [Motrin] 600 mg PO Q8H PRN #30 tablet 12/13/20 Unknown Rx methOCARBAMOL [Robaxin TAB] 750 mg PO BID PRN #30 tab 12/13/20 Unknown Rx predniSONE [Deltasone] 40 mg PO QDAY #10 tab 12/13/20 Unknown Rx Acetaminophen [Acetaminophen TAB] 1,000 mg PO Q6HR PRN #30 tablet 12/28/20 Unknown Rx Amoxicillin/Potassium Clav 1 each PO BID 7 Days #14 tablet 12/28/20 Unknown Rx [Augmentin 875-125 Tablet] diphenhydrAMINE [Benadryl CAP] 25 mg PO Q6HR PRN #15 capsule 12/28/20 Unknown Rx predniSONE [Deltasone] 40 mg PO DAILY 5 Days #10 tablet 12/28/20 Unknown Rx Albuterol Sulfate [Proventil Hfa] 6.7 gm IH Q4HR #1 hfa.aer.ad 05/05/21 Unknown Rx DOXYCYCLINE Hyclate [Vibramycin 100 mg PO Q12HR #20 capsule 05/05/21 Unknown Rx CAP] methylPREDNISolone [Medrol 4MG 4 mg PO ONCE #1 tab.ds.pk 05/05/21 Unknown Rx DOSEPAK (21 tabs)] Allergies Allergy/AdvReac Type Severity Reaction Status Date / Time No Known Allergies Allergy Verified 04/03/20 04:52 ED Review of Systems ROS: Stated complaint: BREATHING, FOOT PAIN,COLD Other details as noted in HPI Comment: All other systems reviewed and negative Constitutional: fever, malaise. denies: chills Eyes: denies: eye pain, eye discharge, vision change ENT: as per HPI, congestion. denies: ear pain, throat pain Respiratory: cough, wheezing. denies: shortness of breath Cardiovascular: denies: chest pain, palpitations Endocrine: no symptoms reported Gastrointestinal: denies: abdominal pain, nausea, diarrhea Genitourinary: denies: urgency, dysuria Musculoskeletal: as per HPI, myalgia. denies: back pain, joint swelling, arthralgia Skin: denies: rash, lesions Neurological: denies: headache, weakness, paresthesias Psychiatric: denies: anxiety, depression Hematological/Lymphatic: denies: easy bleeding, easy bruising ED Past Medical Hx - Past Medical History Previous Medical History?: Yes Hx Hypertension: Yes Additional medical history: Angina. 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 - Surgical History Past Surgical History?: Yes Hx Coronary Stent: Yes (stent) Additional Surgical History: Hardware in feet - Social History Smoking Status: Current Every Day Smoker Substance Use Type: None - Medications Home Medications: Home Medications Medication Instructions Recorded Confirmed Last Taken Type Metoclopramide [Reglan] 10 mg PO TID PRN #12 tab 04/03/20 Unknown Rx lisinopriL [Zestril TAB] 20 mg PO QDAY #30 tablet 06/30/20 Unknown Rx Chlorhexidine Mouthwash [Peridex] 15 ml MM BID #1 bottle 11/22/20 Unknown Rx Clindamycin [Clindamycin CAP] 300 mg PO Q8H #21 cap 11/22/20 Unknown Rx Ibuprofen [Motrin] 600 mg PO Q8H PRN #30 tablet 12/13/20 Unknown Rx methOCARBAMOL [Robaxin TAB] 750 mg PO BID PRN #30 tab 12/13/20 Unknown Rx predniSONE [Deltasone] 40 mg PO QDAY #10 tab 12/13/20 Unknown Rx Acetaminophen [Acetaminophen TAB] 1,000 mg PO Q6HR PRN #30 tablet 12/28/20 Unknown Rx Amoxicillin/Potassium Clav 1 each PO BID 7 Days #14 tablet 12/28/20 Unknown Rx [Augmentin 875-125 Tablet] diphenhydrAMINE [Benadryl CAP] 25 mg PO Q6HR PRN #15 capsule 12/28/20 Unknown Rx predniSONE [Deltasone] 40 mg PO DAILY 5 Days #10 tablet 12/28/20 Unknown Rx Albuterol Sulfate [Proventil Hfa] 6.7 gm IH Q4HR #1 hfa.aer.ad 05/05/21 Unknown Rx DOXYCYCLINE Hyclate [Vibramycin 100 mg PO Q12HR #20 capsule 05/05/21 Unknown Rx CAP] methylPREDNISolone [Medrol 4MG 4 mg PO ONCE #1 tab.ds.pk 05/05/21 Unknown Rx DOSEPAK (21 tabs)] ED Physical Exam - General Limitations: No Limitations General appearance: alert, in no apparent distress - Head Head exam: Present: atraumatic, normocephalic - Eye Eye exam: Present: normal appearance, PERRL, EOMI Pupils: Present: normal accommodation - ENT ENT exam: Present: mucous membranes moist, normal external ear exam. Absent: normal exam, normal orophraynx - Neck Neck exam: Present: normal inspection, full ROM. Absent: tenderness, meningismus - Respiratory Respiratory exam: Present: normal lung sounds bilaterally, wheezes (Mild expiratory wheezes bilaterally, no increased work of breathing). Absent: respiratory distress, rales, rhonchi, stridor, chest wall tenderness - Cardiovascular Cardiovascular Exam: Present: regular rate, normal rhythm, normal heart sounds. Absent: systolic murmur, diastolic murmur, rubs, gallop - GI/Abdominal GI/Abdominal exam: Present: soft, normal bowel sounds. Absent: distended, tenderness, guarding, rebound, rigid - Rectal Rectal exam: Present: deferred - Extremities Exam Extremities exam: Present: normal inspection, full ROM, normal capillary refill. Absent: tenderness, calf tenderness (No lower extreme edema, negative Homans' sign bilaterally.) - Back Exam Back exam: Present: normal inspection, full ROM. Absent: tenderness, CVA tenderness (R), CVA tenderness (L) - Neurological Exam Neurological exam: Present: alert, oriented X3, CN II-XII intact, normal gait - Psychiatric Psychiatric exam: Present: normal affect, normal mood - Skin Skin exam: Present: warm, dry, intact, normal color. Absent: rash ED Course Vital Signs 05/05/21 10:32 Temperature 98.4 F Pulse Rate 75 Respiratory 20 Rate Blood Pressure 136/90 O2 Sat by Pulse 94 Oximetry - Reevaluation(s) Reevaluation #1: 05/05/21 13:57 Patient is nontoxic in no acute distress. His oxygen level is 94% on room air which is normal. Ambulatory oxygen did not show any desaturations and remained in the high 90s. He had some mild expiratory wheezing bilaterally but no crackles. Chest x-ray was unremarkable with no infiltrates. Patient had no chest pain and troponin was unremarkable. He did have a exposure to COVID-19 and I am concerned this may be the source of his symptoms. Although due to lack of hypoxia he does not meet inpatient criteria at this time. I will treat the patient with steroids, inhalers and antibiotics and recommended outpatient follow-up with primary care doctor. Recommend continue self quarantine until 2 weeks and return to the emerge department any change or worsening symptoms. He verbalized understanding the diagnosis, treatment plan and follow-up instructions all his questions were answered. 05/05/21 13:58 ED Medical Decision Making - Lab Data Result diagrams: 05/05/21 12:04 05/05/21 12:04 Lab Results 05/05/21 05/05/21 05/05/21 Range/Units 12:04 12:04 12:04 WBC 5.8 (4.5-11.0) K/mm3 RBC 4.62 (3.65-5.03) M/mm3 Hgb 16.0 H (11.8-15.2) gm/dl Hct 45.7 H (35.5-45.6) % MCV 99 H (84-94) fl MCH 35 H (28-32) pg MCHC 35 H (32-34) % RDW 12.6 L (13.2-15.2) % Plt Count 167 (140-440) K/mm3 Lymph % (Auto) 30.8 (13.4-35.0) % [place] % (Auto) 8.3 H (0.0-7.3) % Eos % (Auto) 1.8 (0.0-4.3) % Baso % (Auto) 0.7 (0.0-1.8) % Lymph # (Auto) 1.8 (1.2-5.4) K/mm3 [place] # (Auto) 0.5 (0.0-0.8) K/mm3 Eos # (Auto) 0.1 (0.0-0.4) K/mm3 Baso # (Auto) 0.0 (0.0-0.1) K/mm3 Seg Neutrophils % 58.4 (40.0-70.0) % Seg Neutrophils # 3.4 (1.8-7.7) K/mm3 Sodium 142 (137-145) mmol/L Potassium 3.9 (3.6-5.0) mmol/L Chloride 102.4 (98-107) mmol/L Carbon Dioxide 28 (22-30) mmol/L Anion Gap 16 mmol/L BUN 12 (9-20) mg/dL Creatinine 1.2 (0.8-1.3) mg/dL Estimated GFR > 60 ml/min BUN/Creatinine Ratio 10 % Glucose 105 H (75-100) mg/dL Calcium 9.1 (8.4-10.2) mg/dL Total Bilirubin 0.60 (0.1-1.2) mg/dL AST 22 (5-40) units/L ALT 9 (7-56) units/L Alkaline Phosphatase 98 (35-129) units/L Troponin T < 0.010 (0.00-0.029) ng/mL NT-Pro-B Natriuret Pep 6.15 (0-900) pg/mL Total Protein 7.3 (6.3-8.2) g/dL Albumin 4.2 (3.9-5) g/dL Albumin/Globulin Ratio 1.4 % - Radiology Data Radiology results: image reviewed No acute process per radiology - Medical Decision Making Patient is nontoxic in no acute distress. His oxygen level is 94% on room air which is normal. Ambulatory oxygen did not show any desaturations and remained in the high 90s. He had some mild expiratory wheezing bilaterally but no crackles. Chest x-ray was unremarkable with no infiltrates. Patient had no chest pain and troponin was unremarkable. He did have a exposure to COVID-19 and I am concerned this may be the source of his symptoms. Although due to lack of hypoxia he does not meet inpatient criteria at this time. I will treat the patient with steroids, inhalers and antibiotics and recommended outpatient fol low-up with primary care doctor. Recommend continue self quarantine until 2 weeks and return to the emerge department any change or worsening symptoms. He verbalized understanding the diagnosis, treatment plan and follow-up instructions all his questions were answered. - Differential Diagnosis COVID-19, pneumonia, URI Critical care attestation.: If time is entered above; I have spent that time in minutes in the direct care of this critically ill patient, excluding procedure time. ED Disposition Clinical Impression: Suspected COVID-19 virus infection, Acute viral syndrome Disposition: HOME / SELF CARE / HOMELESS Is pt being admited?: No Condition: Stable Instructions: Viral Respiratory Infection, [id number] Prescriptions: methylPREDNISolone [Medrol 4MG DOSEPAK (21 tabs)] 4 mg PO ONCE #1 tab.ds.pk Albuterol Sulfate [Proventil Hfa] 6.7 gm IH Q4HR #1 hfa.aer.ad DOXYCYCLINE Hyclate [Vibramycin CAP] 100 mg PO Q12HR #20 capsule Referrals: PRIMARY CARE, [Primary Care Provider] - 3-5 Days Forms: Work/School Release Form(ED) Time of Disposition: 14:01
== END 2021-05-05 14:27 | disposition home or self-care (01) ==
LOC: ED 10:02
DX: B34.9 Viral infection, unspecified (principal); Z20.822 Contact with and (suspected) exposure to COVID-19; I10 Essential (primary) hypertension; I20.9 Angina pectoris, unspecified; Z98.890 Other specified postprocedural states; F17.200 Nicotine dependence, unspecified, uncomplicated
CPT/HCPCS: 36415; 71046; 80053; 83880; 84484; 85025; 99283